=== PATIENT | female | born 1955 | race Caucasian/White ===

== ENCOUNTER → 2020-03-06 | Outpatient (CLI) | payer OTHER ==
[~2020-03-06] MED LIST: MELO7.5 PO
== END | disposition home or self-care (01) ==
LOC: PLD 10:45 → LAB SHORT 10:45
DX: D48.5 Neoplasm of uncertain behavior of skin (principal)
CPT/HCPCS: 88305

== ENCOUNTER → 2020-08-23 | Outpatient (CLI) | payer OTHER | END | disposition home or self-care (01) | LOC: LAB SHORT 16:00 → LAB EV 16:00 | DX: R30.9 Painful micturition, unspecified (principal) | CPT/HCPCS: 87086 ==

== ENCOUNTER → 2020-12-20 | Outpatient (CLI) | payer OTHER | LOC: LAB SHORT 08:40 → LAB 08:40 | DX: L08.0 Pyoderma (principal) | CPT/HCPCS: 87070; 87205 ==

== ENCOUNTER → 2021-02-05 | Outpatient (CLI) | payer OTHER ==
[2021-02-08 07:38] LABS: Performing Lab SYMBIODX; Test Name TISSUE BLOCK
== END | disposition home or self-care (01) ==
LOC: LAB SHORT 08:04 → LAB 08:04
PROVIDERS: Dermatology
DX: B00.9 Herpesviral infection, unspecified (principal)
CPT/HCPCS: 88305; 88342

== ENCOUNTER → 2021-10-03 | Outpatient (CLI) | payer OTHER | END | disposition home or self-care (01) | LOC: LAB SHORT 10:49 → LAB 10:49 | DX: R30.9 Painful micturition, unspecified (principal) | CPT/HCPCS: 87086 ==

== ENCOUNTER → 2022-09-24 | Outpatient (CLI) | payer MEDICARE | LOC: LAB 13:50 → LAB SHORT 13:50 | DX: L08.0 Pyoderma (principal) | CPT/HCPCS: 87070; 87205 ==

== ENCOUNTER → 2022-09-24 | Outpatient (CLI) | payer MEDICARE | LOC: PLD 07:46 → LAB SHORT 07:46 | DX: L57.0 Actinic keratosis (principal) | CPT/HCPCS: 88305 ==

== ENCOUNTER → 2022-12-17 | Outpatient (CLI) | payer MEDICARE, OTHER ==
[2022-12-17 14:06] LABS: Stool Occult Bld Immuno 1 Negative (NEGATIVE); Stool Occult Bld Immuno 2 Negative (NEGATIVE)
== END | disposition home or self-care (01) ==
LOC: LAB SHORT 08:46
PROVIDERS: Internal Medicine Gastroenterology
DX: Z09 Encounter for follow-up examination after completed treatment for conditions other than malignant neoplasm (principal); Z86.010 Personal history of colon polyps
CPT/HCPCS: 82274

== ENCOUNTER → 2023-02-05 | Outpatient (CLI) | payer MEDICARE, OTHER | END | disposition home or self-care (01) | LOC: PLD 15:41 → LAB SHORT 15:41 | DX: D48.5 Neoplasm of uncertain behavior of skin (principal) | CPT/HCPCS: 88304; 88305 ==

== ENCOUNTER → 2023-09-14 | Outpatient (CLI) | payer MEDICARE, OTHER | LOC: LAB 07:41 → LAB SHORT 07:41 | DX: L90.5 Scar conditions and fibrosis of skin (principal) | CPT/HCPCS: 88305 ==